=== PATIENT | female | born 1990 | race American Indian/Alaskan Native ===

== ENCOUNTER 2017-06-09 15:26 | Emergency (ER) | payer MEDICAID, OTHER ==
[2017-06-09 16:17] LABS: Basophils % (Auto) 0.3 % (0.0-1.8); Eosinophils % (Auto) 0.2 % (0.0-4.3); Hematocrit 31.4 % (30.3-42.9); Hemoglobin 10.4 gm/dl (10.1-14.3); Mean Corpuscular HGB Conc 33 % (30-34); Mean Corpuscular Hemoglobin 28 pg (28-32); Mean Corpuscular Volume 85 fl (79-97); Platelet Count 190 K/mm3 (140-440); Red Blood Count 3.72 M/mm3 (3.65-5.03); Red Cell Distribution Width 12.4 % (13.2-15.2); White Blood Count 9.1 K/mm3 (4.5-11.0)
[2017-06-09 16:38] LABS: Alanine Aminotransferase 18 units/L (7-56); Albumin 4.2 g/dL (3.9-5); Albumin/Globulin Ratio 1.3 %; Alkaline Phosphatase 49 units/L (35-129); Anion Gap 17 mmol/L; BUN/Creatinine Ratio 8.33; Blood Urea Nitrogen 5 mg/dL (7-17); Calcium 8.9 mg/dL (8.4-10.2); Carbon Dioxide 26 mmol/L (22-30); Chloride 103.2 mmol/L (98-107); Glucose 82 mg/dL (65-100); Lipase 20 units/L (13-60); Potassium 4.2 mmol/L (3.6-5.0); Sodium 142 mmol/L (137-145); Total Protein 7.5 g/dL (6.3-8.2)
--- NOTE | 2017-06-09 16:59 | Emergency Department Report ---
ED General Adult HPI - General Chief complaint: Fever Stated complaint: FEVER POST EPTOPIC PREG. Time Seen by Provider: 06/09/17 16:57 Source: patient, family Mode of arrival: Wheelchair Limitations: No Limitations - History of Present Illness Initial comments: Patient is 27 years old female status post ectopic surgery at [facility] on 06/05/2017 complaining of fever abdominal pain and is swallowing for the last 2 days. Patient denied any nausea or vomiting. Stated that she did have history of constipation. No vaginal bleeding -: Gradual Location: abdomen Radiation: non-radiation Quality: dull Associated Symptoms: denies other symptoms - Related Data Previous Rx's Medication Instructions Recorded Last Taken Type Naproxen [Naprosyn] 500 mg PO BID #14 tablet 06/09/17 Unknown Rx Allergies Allergy/AdvReac Type Severity Reaction Status Date / Time No Known Allergies Allergy Verified 12/14/14 00:02 ED Review of Systems ROS: Stated complaint: FEVER POST EPTOPIC PREG. Other details as noted in HPI Comment: All other systems reviewed and negative Constitutional: chills, fever Respiratory: denies: cough, shortness of breath Cardiovascular: palpitations. denies: chest pain, dyspnea on exertion Gastrointestinal: abdominal pain, constipation. denies: nausea, vomiting, diarrhea, hematemesis, melena, hematochezia Genitourinary: abnormal menses Skin: denies: rash Neurological: denies: headache, weakness, numbness ED Past Medical Hx - Past Medical History Previous Medical History?: Yes Hx Psychiatric Treatment: Yes (anxiety , depression) Additional medical history: heart murmur - Surgical History Past Surgical History?: Yes Additional Surgical History: right fallopian tube removed due to ectopic - Social History Smoking Status: Current Some Day Smoker Substance Use Type: Alcohol, Marijuana, Prescribed - Medications Home Medications: Home Medications Medication Instructions Recorded Confirmed Last Taken Type Naproxen [Naprosyn] 500 mg PO BID #14 tablet 06/09/17 Unknown Rx ED Physical Exam - General Limitations: No Limitations General appearance: alert, in no apparent distress - Head Head exam: Present: atraumatic, normocephalic - Eye Eye exam: Present: normal appearance, PERRL - ENT ENT exam: Present: normal exam, normal orophraynx - Neck Neck exam: Present: normal inspection, full ROM. Absent: meningismus, lymphadenopathy, thyromegaly - Respiratory Respiratory exam: Present: normal lung sounds bilaterally. Absent: respiratory distress, wheezes, rales - Cardiovascular Cardiovascular Exam: Present: tachycardia. Absent: systolic murmur, diastolic murmur - GI/Abdominal GI/Abdominal exam: Present: soft, distended, hyperactive bowel sounds. Absent: tenderness, guarding, rebound, rigid, organomegaly, mass, bruit, pulsatile mass , hernia - Extremities Exam Extremities exam: Present: normal inspection. Absent: tenderness - Back Exam Back exam: Present: normal inspection. Absent: CVA tenderness (R), CVA tenderness (L) - Neurological Exam Neurological exam: Present: alert, oriented X3, CN II-XII intact - Skin Skin exam: Present: warm, intact, normal color ED Course Vital Signs 06/09/17 06/09/17 15:44 17:23 Temperature 100.5 F H Pulse Rate 101 H 117 H Respiratory 20 16 Rate Blood Pressure 109/67 Blood Pressure 126/73 [Right] O2 Sat by Pulse 100 100 Oximetry - Reevaluation(s) Reevaluation #1: 06/09/17 20:03 Patient stated that she feeling much better. 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 ED Medical Decision Making - Lab Data Result diagrams: 06/09/17 15:56 06/09/17 15:56 - Radiology Data Radiology results: report reviewed Critical care attestation.: If time is entered above; I have spent that time in minutes in the direct care of this critically ill patient, excluding procedure time. ED Disposition Clinical Impression: Abdominal pain Disposition: DC- TO HOME OR SELFCARE Is pt being admited?: No Condition: Stable Instructions: Abdominal Pain (ED) Referrals: PRIMARY CARE,MD [Primary Care Provider] - 3-5 Days
[2017-06-09] MEDS ORDERED: TYLENOL PO ONE (17:07)
[2017-06-09 17:32] LABS: Bilirubin,Urine NEG (Negative); Blood,Urine MOD (Negative); Ketones,Urine NEG (Negative); Leukocyte Esterase,Urine NEG (Negative); Mucus,Urine FEW /HPF; Nitrite,Urine NEG (Negative); Protein,Urine <15 mg/dL mg/dL (Negative); Urobilinogen,Urine < 2.0 mg/dL (<2.0)
--- NOTE | 2017-06-09 19:21 | XRay Report ---
FINAL REPORT PROCEDURE: XR CHEST 1V AP TECHNIQUE: Chest radiograph anteroposterior view. CPT 05855 HISTORY: fever COMPARISON: No prior studies are available for comparison. FINDINGS: Heart: Normal. Mediastinum/Vessels: Normal. Lungs/Pleural space: Normal. Bony thorax: No acute osseous abnormality. Life support devices: None. IMPRESSION: No acute cardiopulmonary abnormality.
--- NOTE | 2017-06-09 19:58 | Ultrasound Report ---
FINAL REPORT EXAM: US TRANSVAGINAL HISTORY: ABDOMINAL PAIN ,s/p ectopic surgery three days ago TECHNIQUE: Transabdominal and transvaginal sonography of the pelvis. PRIORS: None. FINDINGS: The uterus measures 7.3 x 4.9 x 4.2 cm and appears grossly unremarkable. The endometrial stripe is within normal limits and measures 7 mm in AP dimension. The right ovary measures 3.2 x 2.0 x 1.8 cm and is grossly unremarkable. The left ovary measures 2.9 x 2.1 x 2.4 cm and is grossly unremarkable. No adnexal masses. Small-moderate amount of nonspecific, free fluid in the pelvic cul-de-sac and right adnexa. IMPRESSION: 1. Small-moderate amount of nonspecific, free fluid in the pelvis may represent postsurgical change or residual. 2. Otherwise, unremarkable.
--- NOTE | 2017-06-09 20:00 | Ultrasound Report ---
FINAL REPORT EXAM: US PELVIC COMPLETE HISTORY: abdominal pain, s/p ectopic preg surgery 3 days ag TECHNIQUE: Transabdominal and transvaginal sonography of the pelvis. PRIORS: None. FINDINGS: The uterus measures 7.3 x 4.9 x 4.2 cm and appears grossly unremarkable. The endometrial stripe is within normal limits and measures 7 mm in AP dimension. The right ovary measures 3.2 x 2.0 x 1.8 cm and is grossly unremarkable. The left ovary measures 2.9 x 2.1 x 2.4 cm and is grossly unremarkable. No adnexal masses. Small-moderate amount of nonspecific, free fluid in the pelvic cul-de-sac and right adnexa. IMPRESSION: 1. Small-moderate amount of nonspecific, free fluid in the pelvis may represent postsurgical change or residual. 2. Otherwise, unremarkable.
[2017-06-09 20:38] VITALS: BP 106/57
== END 2017-06-09 20:38 | disposition home or self-care (01) ==
LOC: ED 15:26
DX: R10.9 Unspecified abdominal pain (principal)
CPT/HCPCS: 36415; 71010; 76830; 76856; 80053; 81001; 83690; 85025

== ENCOUNTER 2018-03-24 09:19 | Emergency (ER) | payer MEDICAID ==
[2018-03-24 09:25] VITALS: BP 132/68
[2018-03-24 10:14] LABS: HCG Qualitative,Urine Negative (Negative)
[2018-03-24 10:17] LABS: Bacteria,Urine 1+ /HPF (Negative); Bilirubin,Urine NEG (Negative); Blood,Urine NEG (Negative); Color,Urine Yellow (Yellow); Mucus,Urine 3+ /HPF; Protein,Urine <15 mg/dL mg/dL (Negative); Urobilinogen,Urine < 2.0 mg/dL (<2.0)
--- NOTE | 2018-03-24 11:05 | Emergency Department Report ---
ED Female HPI - General Chief complaint: Urogenital-Female Stated complaint: ABD PAIN,VAGINAL DISCHARGE Time Seen by Provider: 03/24/18 09:58 Source: patient Mode of arrival: Ambulatory Limitations: No Limitations - History of Present Illness Initial comments: Assisted 28-year-old -Turkish female who presents with pelvic pain and vaginal discharge for 4 days. Patient reports discharge have a foul odor. She is concerned pelvic inflammatory disease status returned. Patient was diagnosed with PID last June and did not complete 14 days of Flagyl and doxycycline as prescribed. She reports no symptoms until 4 days ago. She admits to douching after menses. Last menstrual period 03/09/2018, A1. Patient states she only took 1 week of antibiotic as prescribed PID. Denies low back pain, fever, dysuria, frequency, urgency, and hematuria. MD Complaint: vaginal discharge, pelvic pain, possible STD Onset/Timin -: days(s) Location: suprapubic Radiation: non-radiating Severity: moderate Severity scale (0 -10): 5 Quality: cramping, aching Consistency: intermittent Improves with: none Worsens with: intercourse Are you Now?: No Last Menstrual Period: 03/09/18 EDC: 12/14/18 Associated Symptoms: vaginal discharge. denies: vaginal bleeding, abdominal pain, nausea/vomiting, fever/chills, headaches, loss of appetite, dysuria, hematuria, rash, seizure, shortness of breath, syncope, weakness - Related Data Sexually active: Yes : 2 Para: 1 A: 1 Previous Rx's Medication Instructions Recorded Last Taken Type Naproxen [Naprosyn] 500 mg PO BID #14 tablet 06/09/17 Unknown Rx metroNIDAZOLE [Metronidazole] 500 mg PO BID 5 Days #10 tablet 03/24/18 Unknown Rx Allergies Allergy/AdvReac Type Severity Reaction Status Date / Time No Known Allergies Allergy Verified 12/14/14 00:02 ED Review of Systems ROS: Stated complaint: ABD PAIN,VAGINAL DISCHARGE Other details as noted in HPI Constitutional: denies: chills, fever Respiratory: denies: cough, shortness of breath, wheezing Cardiovascular: denies: chest pain, palpitations Gastrointestinal: abdominal pain (suprapubic pain). denies: nausea, vomiting, diarrhea, constipation, hematemesis, melena, hematochezia Genitourinary: discharge (White foul-smelling discharge). denies: urgency, dysuria, frequency, hematuria, abnormal menses, dyspareunia Musculoskeletal: denies: back pain, joint swelling, arthralgia Neurological: denies: headache, weakness, paresthesias Psychiatric: denies: anxiety, depression ED Past Medical Hx - Past Medical History Previous Medical History?: Yes Hx Psychiatric Treatment: Yes (anxiety , depression) Additional medical history: heart murmur - Surgical History Past Surgical History?: Yes Additional Surgical History: right fallopian tube removed due to ectopic - Social History Smoking Status: Never Smoker Substance Use Type: None - Medications Home Medications: Home Medications Medication Instructions Recorded Confirmed Last Taken Type Naproxen [Naprosyn] 500 mg PO BID #14 tablet 06/09/17 Unknown Rx metroNIDAZOLE [Metronidazole] 500 mg PO BID 5 Days #10 tablet 03/24/18 Unknown Rx ED Physical Exam - General Limitations: No Limitations General appearance: alert, in no apparent distress - Respiratory Respiratory exam: Present: normal lung sounds bilaterally. Absent: respiratory distress - Cardiovascular Cardiovascular Exam: Present: regular rate, normal rhythm. Absent: systolic murmur, diastolic murmur, rubs, gallop - GI/Abdominal GI/Abdominal exam: Present: soft, normal bowel sounds. Absent: distended, tenderness, guarding, rebound, rigid, organomegaly, mass - External exam: Present: normal external exam Speculum exam: Present: vaginal discharge (frothy white thin discharge). Absent : erythema, cervical discharge, vaginal bleeding, foreign body, tissue, laceration Bi-manual exam: Present: normal bi-manual exam. Absent: cervical motion tendernes, adnexal tenderness, adnexal mass, uterine enlargement, uterine tenderness - Back Exam Back exam: Present: normal inspection. Absent: CVA tenderness (R), CVA tenderness (L) - Neurological Exam Neurological exam: Present: alert, oriented X3 - Psychiatric Psychiatric exam: Present: normal affect, normal mood - Skin Skin exam: Present: warm, dry, intact, normal color. Absent: rash ED Course Vital Signs 03/24/18 09:22 Temperature 98.3 F Pulse Rate 102 H Respiratory 16 Rate Blood Pressure 132/68 O2 Sat by Pulse 100 Oximetry ED Medical Decision Making - Medical Decision Making This is a 28-year-old -Turk[place] female who presents with vaginal discharge and pelvic pain for 4 days. Patient was examined by me. Vitals are stable and in no acute distress. Urinalysis, urine hCG, and wet prep via pelvic exam obtained. Positive clue cells and Trichomonas on wet prep, negative urine hCG, and normal urinalysis. GC pending, patient instructed to follow up in 3-5 days for results. Patient given metronidazole 2 g by mouth once while in ER. Start metronidazole 500 mg by mouth twice a day 5 days. Discharged home in stable condition. Discussed prevention options. F/U with PCP or Health Department. Critical care attestation.: If time is entered above; I have spent that time in minutes in the direct care of this critically ill patient, excluding procedure time. ED Disposition Clinical Impression: Vaginal discharge, Trichomonas vaginalis infection, Bacterial vaginitis Disposition: TO HOME OR SELFCARE Is pt being admited?: No Does the pt Need Aspirin: No Condition: Stable Instructions: Bacterial Vaginosis (ED), Safe Sex (ED), Trichomoniasis (ED) Additional Instructions: Avoid drinking alcohol while taking antibiotics and for 24 hours after completion. Continue safe sexual intercourse. Follow up with Primary Care Provider or health department. Prescriptions: metroNIDAZOLE [Metronidazole] 500 mg PO BID 5 Days #10 tablet Referrals: [facility] [Outside] - 3-5 Days [facility] [Outside] - 3-5 Days [facility] [Outside] - 3-5 Days Forms: STI Treatment and Prevention Time of Disposition: 11:41 Print Language: SINGAPORE[place]
[2018-03-24] MEDS ORDERED: FLAGYL PO ONE (11:37)
== END 2018-03-24 11:47 | disposition home or self-care (01) ==
LOC: ED 09:19
DX: N76.0 Acute vaginitis (principal); A59.01 Trichomonal vulvovaginitis; F41.9 Anxiety disorder, unspecified; F32.9 Major depressive disorder, single episode, unspecified
CPT/HCPCS: 81001; 81025; 87210; 87591; 99283